=== PATIENT | female | born 1970 | race Caucasian/White ===

== ENCOUNTER 2022-11-15 16:44 | Emergency (ER) | payer OTHER ==
[~2022-11-15] VITALS: Ht 160 cm; Wt 67.0 kg
[2022-11-15 18:04] LABS: CLARITY URINE CLEAR (CLEAR); COLOR URINE YELLOW (YELLOW); KETONES URINE TRACE (NEGATIVE); LEUKOCYTE ESTERASE URINE NEGATIVE (NEGATIVE); NITRITE URINE NEGATIVE (NEGATIVE); OCCULT BLOOD URINE NEGATIVE (NEGATIVE); PROTEIN URINE NEGATIVE (NEGATIVE)
[2022-11-15 18:14] LABS: BASOPHILS % 0.7 % (0.0-2.0); EOSINOPHILS % 1.1 % (0.0-5.0); HEMATOCRIT. 41.9 % (36.0-48.0); HEMOGLOBIN. 14.6 g/dL (12.0-16.0); LYMPHOCYTES % 45.1 % (20.0-50.0); MEAN CORPUSCULAR HEMOGLOBIN 31.9 pg (28.0-32.0); MEAN CORPUSCULAR VOLUME 91.5 fL (81.0-99.0); MEAN PLATELET VOLUME 8.1 fl (7.4-10.4); MONOCYTES % 5.4 % (2.0-8.0); NEUTROPHILS % 47.7 % (40.0-76.0); PLATELET 245 x1000/uL (130-400); RED BLOOD CELL COUNT 4.58 mill/uL (4.2-5.4); RED CELL DISTRIBUTION WIDTH 13.3 % (11.6-14.6)
[2022-11-15 18:19] LABS: CHLORIDE 105 mEq/L (98-107)
[2022-11-15] MEDS ORDERED: ONDANSETRON HCL 4MG/2ML INJ IV STA (20:17)
[2022-11-15] MEDS ORDERED: KETOROLAC 15MG/ML VIAL IV ONE (20:30)
[2022-11-15] MEDS ORDERED: SODIUM CHLORIDE 0.9% 1,000 ML IV ONE (20:30)
[2022-11-15] MEDS ORDERED: IOHEXOL-300 100 ML BOTTLE ONE (21:14)
[2022-11-15 23:48] VITALS: BP 136/81; PULSE 80; RESP 16; TEMP 98.2
== END 2022-11-15 23:49 | disposition home or self-care (01) ==
LOC: ER 16:44
DX: R10.12 Left upper quadrant pain (principal); R07.81 Pleurodynia; J45.909 Unspecified asthma, uncomplicated; E11.9 Type 2 diabetes mellitus without complications; I10 Essential (primary) hypertension; V49.49XA Driver injured in collision with other motor vehicles in traffic accident, initial encounter; Y93.89 Activity, other specified; Y92.89 Other specified places as the place of occurrence of the external cause; Y99.8 Other external cause status
CPT/HCPCS: 36415; 71045; 71260; 74177; 80053; 81003; 81025; 83690; 83880; 84484; 85025; 93005; 96374; 96375; 99285; J1885; J2405; J7030; Q9967